=== PATIENT | male | born 2005 | race Two or more races ===

== ENCOUNTER 2024-11-24 16:36 | Emergency (ER) | payer BC, SELFPAY ==
--- OUTSIDE RECORDS SUMMARY | 2024-11-24 16:39 | XMS_ITS | Clinical Summary ---
Author Organization [facility] Address [address] [place] [address] Care Team Providers Care Mining Helper Name Role Phone Flako Barnes MD Primary Care Provider [phone] Allergies No known active allergies Medications amphetamine-dextro amphetamine (ADDERALL XR) 10 mg 24 hour capsuleIndications :Attention deficit disorder (ADD) without hyperactivity Take 1 capsule (10 mg total) by mouth every morning. 30 capsule Active Active Problems Problem Noted Date Diagnosed Date Vitamin D deficiency 06/01/2024 Attention deficit disorder (ADD) without hyperac tivity 06/01/2024 Resolved Problems Problem Noted Date Diagnosed Date Resolved Date COVID-19 virus infection 07/17/202104/2024 Encounter for sports partici pation examination 08/17/2019 05/31/2024 Poison oak dermatitis 12/22/20182020 Immunizations Immunization Administration Dates Next Due DTaP 01/21/2006, 6,02/05/2005,2004,2004 DTaP, 5 pertussis antigens 08/13/2008 HPV, quadrivalent 03/26/2016,09/18/2015 HPV9 10/24/2015 Hep A, ped/adol, 2 dose 07/28/2006,01/21/2006 Hep B, adult 3 dose / adoles cent 2 dose 04/23/2005,2004,2004 Hib, unspecified formulation 10/20/2005, 02/05/2005,2004,2004 IPV 08/13/2008, 6,2004,2004 Influenza injectable, puneet valent, preservative free 01/19/2021,02/20/2020,11/08/2017 Influenza, injectable, MDCK, preservative free, quadrivalent 02/27/2019,11/08/2016 Influenza, split virus, triv alent, with preservative 11/08/2017 MMR 08/13/2008,07/30/2005 PPD Test 08/04/2022 Pneumococcal conjugate PCV 13 10/20/2005 ,02/05/2005,2004,2004 Tdap 06/11/2016 Varicella 08/13/2008,07/30/2005 Social History Tobacco Use Types Packs/Day Years Used Date Smoking Tobacco: Never Smokeless Tobacco: Never Sex and Gender Information Value Date Recorded Sex Assigned at Not on file Legal Sex Male 5:03 PM EDT Gender Identity Not on file Sexual Orientation Not on file Last Filed Vital Signs Vital Sign Reading Time Taken Comments Blood Pressure 123/69 08/16/2024 3:52 PM EDT Pulse 65 08/16/2024 3:52 PM EDT Temperature 37.1 C (98.8 F) 11/06/2021 12:21 PM EDT Respiratory Rate - - Oxygen Saturation 98% 08/16/2024 3:52 PM EDT Inhaled Oxygen Concentration - - Weight 112.5 kg (248 lb) 08/16/2024 3:52 PM EDT Height 185.4 cm (6' 1) 08/16/2024 3:52 PM EDT Body Mass Index 32.72 08/16/2024 3:52 PM EDT Plan of Treatment Health Maintenance Due Date Last Done Comments Hepatitis C Screening 2004 Lipid Panel 2004 Yearly Physical 2004 Meningococcal B Vaccine (1 of 2 - Standard) 2020 COVID-19 Vaccine (4 - season) 2024 03/06/2021, 08/04/2020, 07/14/2020 Influenza Vaccine (#1) 2024 , 02/20/2020, 02/27/2019, Additional history exists DTaP,Tdap,and Td Vaccines (7 - Td or Tdap) 06/11/2026 06/11/2016, 08/13/2008, 01/21/2006, Additional history exists Hepatitis B Vaccines Completed 04/23/2005, 2004, 2004 Hib Vaccines Completed 10/20/2005, 10/2004, 2004, Additional history exists Pneumococcal Vaccine: 50+ Years Discontinued 10/20/2005, 02/05/2005, 2004, Additional history exists Pneumococcal Vaccine: Pediatrics (0 to 5 Years) and At-Risk Patients (6 to 49 Years) Completed 10/20/2005, 02/05/2005, 2004, Additional history exists Hepatitis A Vaccines Completed 07/28/2006, 01/22/20 MMR Vaccines Completed 08/13/2008, 07/30/2005 HPV Vaccines Completed 03/26/2016, 09/29, 09/18/2015 Meningococcal Vaccines (ACWY) Aged Out No longer eligible based on patient's age to complete this topic RSV Immunization < 20 Months Aged Out No longer eligible based on patient's age to complete this topic Insurance [facility] Care Teams Mining Helper Relationship Specialty Start Date End Date Flako Barnes MD PCP - General Family Medicine 05/25/16
[2024-11-24 16:48] VITALS: BP 136/56; PULSE 100; RESP 20; TEMP 36.8; O2SAT 99
--- NOTE | 2024-11-24 16:48 | ED.GENADULT ---
HPI - General Adult General Chief complaint: Laceration/Wound Stated complaint: Right Hand Laceration Time Seen by Provider: 11/24/24 16:48 History of Present Illness HPI narrative: This 19-year-old male comes in with a laceration on his right hand. He was playing football today and his team lost an out of frustration he punched a locker back in the locker room. He has a 2 cm linear laceration overlying the MP joint of his right 5th digit. His tetanus status is up-to-date. He is not showing any sign of tendon deficit or bony injury. Related Data Home Medications ?Medication ?Instructions ?Recorded ?Confirmed dextroamphetamine-amphetamine ER 1 cap PO QAM 11/24/24 11/24/24 10 mg 24hr capsule,extend release Held on 11/24/24. Instructions: pt choice Allergies Allergy/AdvReac Type Severity Reaction Status Date / Time No Known Drug Allergies Allergy Verified 11/24/24 16:47 Review of Systems Status of ROS: Reports: 10 or more systems reviewed and unremarkable except as noted in History and below Narrative: Constitutional: No fevers, no weight gain or loss. Eyes: No discharge. No vision changes. HENT: No congestion, no sore throat, no ear pain. Cardiovascular: No chest pain, no palpitations. Respiratory: No shortness of breath, no wheezes, no cough. Gastrointestinal: No abdominal pain, no vomiting, no diarrhea. Genitourinary: No dysuria, no hematuria. Musculoskeletal: Normal range of motion. Skin: No rashes, no pruritis. Neurological: No dizziness, weakness, sensory change, speech change. Endo/Heme/Allergies: No bruising or bleeding. No polydipsia. Pysch: no suicidality, no anxiety, no insomnia. All other systems reviewed and are negative. Exam Narrative: Exam Narrative: Constitutional: Well-developed, well-nourished, no acute distress. HEENT: Normocephalic, atraumatic. Neck: Normal range of motion. Nontender. Supple. Heart: Intact distal pulses. Lungs: No chest discomfort. No wheezes, rhonchi, or rales. Abdomen: Nontender. Back: Normal range of motion. Extremities: Normal range of motion. 2 cm linear laceration overlying the MP joint of the 5th digit of his right hand. Tendon and nerve function is intact. Skin: Intact. No rash. Warm. No erythema or pallor. Neurologic: No altered sensation. No weakness. Alert and oriented. Psychiatric: No suicidality. No anxiety or depression. No insomnia. Nursing notes and vitals signs are reviewed. Const: Vital Signs, click to edit/add: Vital Signs - 24 hr 11/24/24 16:48 Temperature 98.2 F Pulse Rate [Pulse Oximeter] 100 Respiratory Rate 20 Blood Pressure [Ri ght Upper Arm] 136/56 L Pulse Oximetry 99 Oxygen Delivery Me thod Room Air Course Vital Signs Vital signs: Initial Vital Signs Temperature 98.2 F 11/24/24 16:48 Temperature Source Temporal Artery Scan 11/24/24 16:48 Pulse Rate 100 11/24/24 16:48 Respiratory Rate 20 11/24/24 16:48 Blood Pressure 136/56 L 11/24/24 16:48 Blood Pressure Mean 82 11/24/24 16:48 Blood Pressure Position Sitting 11/24/24 16:48 Pulse Oximetry 99 11/24/24 16:48 Oxygen Delivery Method Room Air 11/24/24 16:48 Vital Signs Temperature 98.2 F 11/24/24 16:48 Pulse Rate 100 11/24/24 16:48 Respiratory Rate 20 11/24/24 16:48 Blood Pressure 136/56 L 11/24/24 16:48 Pulse Oximetry 99 11/24/24 16:48 Oxygen Delivery Method Room Air 11/24/24 16:48 Temperature 98.2 F 11/24/24 16:48 Pulse Rate 100 11/24/24 16:48 Respiratory Rate 20 11/24/24 16:48 Blood Pressure 136/56 L 11/24/24 16:48 Pulse Oximetry 99 11/24/24 16:48 Oxygen Delivery Method Room Air 11/24/24 16:48 Medical Decision Making MDM Narrative Medical decision making narrative: This patient has a laceration that would benefit from suture repair. After anesthesia with 1% lidocaine with epinephrine the wound was cleansed and explored to its base. I do not see any tendon or nerve in the wound. His range of motion is normal. I did place 5 sutures in interrupted fashion using 4.0 Ethilon suture. Instructions regarding wound care were given. Discharge Plan Discharge Clinical Impression: Laceration Patient Disposition: Home, Self-Care Condition: Improved Additional Instructions: Keep wound clean and dry. Follow-up with clinic urgent care in 7-10 days for suture removal. Prescriptions: No Action dextroamphetamine-amphetamine 10 mg capsule,extended release 24hr 1 cap PO QAM Follow Up/Referrals: Provider,Not a Local [Primary Care Provider, Family Practice] Stand Alone Forms: [facility] Connectth Info Instructions
== END 2024-11-24 17:44 | disposition home or self-care (01) ==
LOC: ED 17:28
PROVIDERS: Emergency Provider Emergency Medicine Emergency Medical Services
DX: S61.411A Laceration without foreign body of right hand, initial encounter (principal); W22.8XXA Striking against or struck by other objects, initial encounter
CPT/HCPCS: 12001; 99283; 99284